=== PATIENT | female | born 1990 | race Caucasian/White ===

== ENCOUNTER 2020-03-03 07:16 | Outpatient (REF) | payer BC, SELFPAY ==
[2020-03-03 11:46] LABS: Estimated Average Glucose 105 mg/dL; Hemoglobin A1c % 5.3 %
[2020-03-03 11:55] LABS: Alanine Aminotransferase 67 U/L (0-31); Albumin Level 4.3 g/dL (3.5-5.0); Alkaline Phosphatase 79 U/L (39-117); Anion Gap 14 (12-20); Aspartate Amino Transferase 29 U/L (5-31); Bilirubin Total 0.4 mg/dL (0.0-1.0); Blood Urea Nitrogen 7 mg/dL (9-16); Calcium 8.6 mg/dL (8.4-10.2); Carbon Dioxide 26 mmol/L (22-29); Chloride 102 mmol/L (96-108); Cholesterol 129 mg/dL; Estimated Glomerular Filt Rate > 60; Glucose Fasting 97 mg/dL (60-99); HDL Cholesterol 50 mg/dL; LDL Cholesterol Calculated 52 mg/dl; Potassium 4.3 mmol/l (3.3-5.1); Sodium 138 mmol/L (135-145); Total Protein 7.2 g/dL (6.5-8.0); Triglycerides 137 mg/dL
== END 2020-03-03 07:17 | disposition home or self-care (01) ==
LOC: HO.HMGCLDS 07:16
PROVIDERS: PCP Internal Medicine; Visit Provider Internal Medicine
DX: D68.2 Hereditary deficiency of other clotting factors (principal); D68.51 Activated protein C resistance; F41.9 Anxiety disorder, unspecified; R73.9 Hyperglycemia, unspecified
CPT/HCPCS: 80053; 80061; 83036

== ENCOUNTER 2020-05-26 06:37 | Outpatient (REF) | payer BC, SELFPAY ==
[2020-05-26 11:32] LABS: Estimated Average Glucose 108 mg/dL; Hemoglobin A1c % 5.4 %
== END 2020-05-26 06:38 | disposition home or self-care (01) ==
LOC: HO.HMGCLDS 06:37
PROVIDERS: PCP Internal Medicine; Visit Provider Internal Medicine
DX: R73.9 Hyperglycemia, unspecified (principal); D68.52 Prothrombin gene mutation; F41.9 Anxiety disorder, unspecified
CPT/HCPCS: 36415; 83036

== ENCOUNTER 2021-01-26 07:26 | Outpatient (REF) | payer BC, SELFPAY ==
[2021-01-26 11:34] LABS: MANUAL DIFF FLAG NO
[2021-01-26 11:40] LABS: Basophils Percent Auto 0.5 % (0-2); Eosinophils Absolute Auto 0.3 X10*3/uL (0.0-0.4); Eosinophils Percent Auto 4.2 % (0-4); Hematocrit 36.9 % (37-47); Hemoglobin 11.7 g/dl (12.0-16.0); Imm Gran Abs Auto 0.04 X10*3/uL (0.00-0.03); Imm Gran Pct Auto 0.5 % (0.0-0.4); Lymphocytes Absolute Auto 1.7 X10*3/uL (1.2-4.9); Mean Corpuscular HGB Conc 31.7 g/dl (31.0-35.0); Mean Corpuscular Hemoglobin 23.8 pg (27.0-33.0); Mean Corpuscular Volume 75.2 fL (80-98); Mean Platelet Volume 11.4 fL (9.4-12.3); Monocytes Absolute Auto 0.5 X10*3/uL (0.1-1.2); Monocytes Percent Auto 6.4 % (2-11); Neutrophils Absolute Auto 5.2 X10*3/uL (2.0-8.3); Neutrophils Percent Auto 66.4 % (45-73); Platelet Count 310 X10*3/uL (160-400); Red Blood Count 4.91 X10*6/uL (4.20-5.50); Red Cell Distribution Width 14.6 % (11.0-16.0); White Blood Count 7.9 X10*3/uL (4.8-10.8)
[2021-01-26 12:03] LABS: Estimated Average Glucose 111 mg/dL; Hemoglobin A1c % 5.5 %
[2021-01-26 12:15] LABS: TSH reflex Free T4 3.39 uIU/mL (0.32-4.0)
[2021-01-26 12:25] LABS: Alanine Aminotransferase 14 U/L (0-31); Albumin Level 4.1 g/dL (3.5-5.0); Alkaline Phosphatase 86 U/L (39-117); Anion Gap 12 (12-20); Aspartate Amino Transferase 13 U/L (5-31); Bilirubin Total 0.3 mg/dL (0.0-1.0); Blood Urea Nitrogen 9 mg/dL (9-16); Calcium 8.6 mg/dL (8.4-10.2); Carbon Dioxide 24 mmol/L (22-29); Chloride 106 mmol/L (96-108); Cholesterol 178 mg/dL; Estimated Glomerular Filt Rate > 60; Glucose Fasting 104 mg/dL (60-99); HDL Cholesterol 44 mg/dL; LDL Cholesterol Calculated 95 mg/dl; Potassium 4.2 mmol/L (3.3-5.1); Sodium 138 mmol/L (135-145); Total Protein 7.2 g/dL (6.5-8.0); Triglycerides 197 mg/dL
== END 2021-01-26 07:27 | disposition home or self-care (01) ==
LOC: HO.HMGCLDS 07:26
PROVIDERS: PCP Internal Medicine; Visit Provider Internal Medicine
DX: I10 Essential (primary) hypertension (principal); R73.9 Hyperglycemia, unspecified
CPT/HCPCS: 36415; 80053; 80061; 83036; 84443; 85025

== ENCOUNTER 2021-04-30 08:59 | Outpatient (REF) | payer BC, SELFPAY ==
[2021-04-30 11:42] LABS: Binax Internal Control QC Valid; Binax Lot number: 9864; Binax Now Covid-19 Ag Negative (Negative)
== END 2021-04-30 09:00 | disposition home or self-care (01) ==
LOC: HO.LAB 08:59
PROVIDERS: Visit Provider Internal Medicine
DX: Z20.822 Contact with and (suspected) exposure to COVID-19 (principal)
CPT/HCPCS: 36415; C9803

== ENCOUNTER 2022-09-27 09:23 | Outpatient (REF) | payer BC, SELFPAY ==
[2022-09-27 11:10] LABS: MANUAL DIFF FLAG NO
[2022-09-27 11:29] LABS: Bacteria Urine 4+ (None Seen); Hyaline Casts Urine 0-2 /LPF (0-2); WBC Urine 21-50 /HPF (0-5)
[2022-09-27 11:35] LABS: Appearance Urine Cloudy; Color Urine Orange; Glucose Urine UA Negative (Negative); Leukocyte Esterase Urine Small (1+) (Negative); Nitrite Urine Negative (Negative); PH 5.5 (5.0-9.0); UMIC TRIGGER UA YES; Urine Blood Large (3+) (Negative); Urine Ketones Negative (Negative); Urine Protein 100 (2+) mg/dL (Neg-Trace)
[2022-09-27 11:43] LABS: Basophils Percent Auto 0.5 % (0-2); Eosinophils Absolute Auto 0.3 X10*3/uL (0.0-0.4); Eosinophils Percent Auto 4.7 % (0-4); Hematocrit 37.6 % (37.0-47.0); Hemoglobin 11.3 g/dl (12.0-16.0); Imm Gran Abs Auto 0.04 X10*3/uL (0.00-0.03); Imm Gran Pct Auto 0.6 % (0.0-0.4); Lymphocytes Absolute Auto 1.4 X10*3/uL (1.2-4.9); Lymphocytes Percent Auto 21.3 % (20-40); Mean Corpuscular HGB Conc 30.1 g/dl (31.0-35.0); Mean Corpuscular Hemoglobin 21.8 pg (27.0-33.0); Mean Corpuscular Volume 72.6 fL (80.0-98.0); Mean Platelet Volume 11.1 fL (9.4-12.3); Monocytes Absolute Auto 0.4 X10*3/uL (0.1-1.2); Monocytes Percent Auto 5.4 % (2-11); Neutrophils Absolute Auto 4.4 x10*3/uL (2.0-8.3); Neutrophils Percent Auto 67.5 % (45-73); Platelet Count 333 X10*3/uL (160-400); Red Blood Count 5.18 X10*6/uL (4.20-5.50); Red Cell Distribution Width 15.6 % (11.0-16.0); White Blood Count 6.4 X10*3/uL (4.8-10.8)
[2022-09-27 11:51] LABS: Alanine Aminotransferase 21 U/L (0-31); Albumin Level 4.2 g/dL (3.5-5.0); Alkaline Phosphatase 87 U/L (39-117); Anion Gap 12 (12-20); Aspartate Amino Transferase 17 U/L (5-31); Bilirubin Total 0.3 mg/dL (0.0-1.0); Blood Urea Nitrogen 11 mg/dL (9-16); Calcium 9.3 mg/dL (8.4-10.2); Carbon Dioxide 26 mmol/L (22-29); Chloride 106 mmol/L (96-108); Cholesterol 182 mg/dL; Estimated Glomerular Filt Rate > 60; Glucose Random 106 mg/dL (60-115); HDL Cholesterol 40 mg/dL; LDL Cholesterol Calculated 100 mg/dl; Potassium 4.6 mmol/L (3.3-5.1); Sodium 139 mmol/L (135-145); Total Protein 7.6 g/dL (6.5-8.0); Triglycerides 212 mg/dL
[2022-09-27 12:03] LABS: Estimated Average Glucose 120 mg/dL; Hemoglobin A1c % 5.8 %
[2022-09-27 12:09] LABS: TSH reflex Free T4 2.36 uIU/mL (0.32-4.0)
[2022-10-12 11:13] LABS: Rabies Neut. Ab Titration 3.1 IU/mL
== END 2022-09-27 09:24 | disposition home or self-care (01) ==
LOC: HO.HMGCLDS 09:23
PROVIDERS: PCP Internal Medicine; Visit Provider Internal Medicine
DX: Z00.00 Encounter for general adult medical examination without abnormal findings (principal); R73.9 Hyperglycemia, unspecified
CPT/HCPCS: 36415; 80053; 80061; 81001; 83036; 84443; 85025; 86382

== ENCOUNTER 2022-12-25 08:10 | Outpatient (AMB) | payer BC, SELFPAY ==
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
[2022-12-25 08:53] VITALS: BP 126/72; PULSE 52; TEMP 36.6; O2SAT 99; BMI 37.6
== END 2022-12-25 09:20 | disposition home or self-care (01) ==
PROVIDERS: PCP Internal Medicine; Visit Provider Physician Assistant
DX: M62.838 Other muscle spasm (principal)
CPT/HCPCS: 99213

== ENCOUNTER 2023-06-15 15:20 | Outpatient (AMB) | payer OTHER, BC, SELFPAY ==
--- NOTE | 2023-06-15 15:24 | MHC.OFFWIV ---
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 She was able to control the bleeding. She is up to date with Rabies and Tdap Shots. Denies any systemic symptoms. [facility] Medical History Annual physical exam Anxiety delivery indicated due to breech presentation Gallstone Gestational diabetes HTN (hypertension) Hypercoagulability due to prothrombin II mutation Hyperglycemia, unspecified Surgical History History of tonsillectomy Nephrolithiasis Family History Father Gout Arthritis Substance use disorder Mental health disorder Mother History of heart attack TIA (transient ischemic attack) Stroke Cervical cancer Substance use disorder Mental health disorder Maternal Grandfather Medical history non-contributory Maternal Grandmother HTN (hypertension) Paternal Grandmother Stroke Cancer Paternal Grandfather No problems noted. Brother No problems noted. 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 Housing: House Alcohol intake: never Patient Tobacco Use Status: Never used Tobacco e-Cigarette/Vaping Use: Never Used service: No Current occupational status: employed Cognitive needs: No Hearing needs: No Vision needs: Yes Physical Exam Vital Signs: Last Vital Signs Temp 97.5 F 06/15/23 15:36 Pulse 100 06/15/23 15:36 BP 170/100 H 06/15/23 15:36 Pulse Ox 99 06/15/23 15:36 Oxygen Delivery Method Room Air 06/15/23 15:36 BMI result Body Mass Index 38.5 Const General: comfortable and no acute distress Skin Trauma: laceration (left upper forearm ) Extrem Right upper extremity: full ROM, no joint enlargement and elbow/forearm Details: normal to inspection and normal ROM; no swelling; no cyanosis and no edema Left upper extremity: full ROM and elbow/forearm (small area of Tooth puncture, redness and tender) Details: normal ROM Assessment & Plan Assessment & Plan (1) Dog bite of arm: Code(s): S41.159A - Open bite of unspecified upper arm, initial encounter; W54.0XXA - Bitten by dog, initial encounter Qualifiers: Encounter type: initial encounter Laterality: left Qualified Code(s): S41.152A - Open bite of left upper arm, initial encounter; W54.0XXA - Bitten by dog, initial encounter Plan: - She is up to date with Tdap and Rabies immunization - Keep the area clean - Take Abx as prescribed. Medications: New amoxicillin-pot clavulanate 875-125 mg 1 tab PO BID 5 days 10 tabs 0RF PROPHYLAXIS S41.152A - Open bite of left upper arm, initial encounter, W54.0XXA - Bitten by dog, initial encounter Coding Level of Care Code Est Pt Level 3 (76661) Diagnoses Dog bite of left upper extremity, initial encounter S41.152A; W54.0XXA Encounter type: initial encounter Laterality: left Time Spent (min) 15
[2023-06-15 15:36] VITALS: BP 170/100; PULSE 100; TEMP 36.4; O2SAT 99; BMI 38.5
== END 2023-06-15 15:47 | disposition home or self-care (01) ==
PROVIDERS: PCP Internal Medicine; Visit Provider Nurse Practitioner Family
DX: S41.152A Open bite of left upper arm, initial encounter (principal); W54.0XXA Bitten by dog, initial encounter
CPT/HCPCS: 99213

== ENCOUNTER 2023-12-18 10:05 | Outpatient (AMB) | payer BC, SELFPAY ==
[2023-12-18 10:18] VITALS: BP 118/80; PULSE 95; O2SAT 99; BMI 37.9
--- NOTE | 2023-12-18 10:18 | A.OFFPC_ITS ---
Vital Signs 12/18/23 10:18 Height 5 ft 4 in Weight 221 lb BMI 37.9 BP 118/80 Blood Pressure Location Lt brachial Position Sitting Pulse 95 Pulse Source Pulse Oximeter Pulse Oximetry (%) 99 Oxygen Delivery Method Room Air Intake Visit Reasons: PE Intake Note: Pt is here today for PE. Allergies No Known Allergies Allergy (Verified 12/18/23 10:24) Tobacco use date assessed: 12/18/23 Dental Screening Dental Screen Date: 12/18/23 Did you have a dental visit in the last 12 months?: Yes Did you have a dental problem in the last 6 months where you did not have access to dental care?: No Was dental information given to patient?: Patient has dentist HPI PE HPI Details Pt presents for PE. [facility] Medical History Annual physical exam Hypercoagulability due to prothrombin II mutation Hyperglycemia, unspecified Anxiety delivery indicated due to breech presentation Gestational diabetes Gallstone HTN (hypertension) Surgical History Nephrolithiasis History of tonsillectomy Family History Father Gout Arthritis Substance use disorder Mental health disorder Mother History of heart attack TIA (transient ischemic attack) Stroke Cervical cancer Substance use disorder Mental health disorder Maternal Grandfather Medical history non-contributory Maternal Grandmother HTN (hypertension) Paternal Grandmother Stroke Cancer Paternal Grandfather No problems noted. Brother No problems noted. 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 1. Little interest or pleasure in doing things: not at all 2. Feeling down, depressed, or hopeless: not at all 3. Trouble falling or staying asleep, or sleeping too much: not at all 4. Feeling tired or having little energy: not at all 5. Poor appetite or overeating: not at all 6. Feeling bad about yourself - or that you are a failure or have let yourself or your family down: not at all 7. Trouble concentrating on things, such as reading the newspaper or watching television: not at all 8. Moving or speaking so slowly that other people could have noticed. Or the opposite - being so fidgety or restless that you have been moving around a lot more than usual: not at all 9. Thoughts that you would be better off or of hurting yourself in some way: not at all Total score: 0 Depression Screening Interpretation: Negative Depression Screening Done: Yes 56123 - PHQ-9 Billing: Yes Source: Developed by Drs. Lucien Griffiths, Samantha Jimenez, Jasvir Nevarez and colleagues, with an educational matty from [employer]. Thrive Questionnaire Date Thrive assessed: 12/18/23 I am a: Patient What is your living situation today?: I have a steady place to live Within the past 12 months, did the food you bought not last and you didn't have the money to get more?: Never true Within the past 12 months, did you worry whether your food would run out before you got money to buy more?: Never true Do you have trouble paying for medicines?: No Do you have trouble getting transportation to medical appointments?: No Do you have trouble paying your heating and electricity bill?: No Do you have trouble taking care of your child, family member or friend?: No Do you have trouble with day-to-day activities such as bathing, preparing meals, shopping, managing finances, etc.?: No Are you currently unemployed and looking for a job?: No Are you interested in more education?: No Please select the resources that you would like help with: None Currently or been in a relationship where the following occur: No concerns reported THRIVE Score: 0 AUDIT C Alcohol Use Questionnaire (AUDIT-C) 1. How often do you have a drink containing alcohol?: Monthly or less 2. How many drinks containing alcohol do you have on a typical day when you are drinking?: 1 or 2 3. How often do you have six or more drinks on one occasion?: Never Total Score: 1 PETE-7 AMB Questionnaire PETE-7 Date PETE - 7 assessed: 12/18/23 Feeling nervous, anxious, or on edge: 3 = Nearly every day Not being able to stop or control worryin = More than half the days Worrying too much about different things: 2 = More than half the days Trouble relaxin = Nearly every day Being so restless that it is hard to sit still: 3 = Nearly every day Becoming easily annoyed or irritable: 1 = Several days Feeling afraid as if something awful might happen: 1 = Several days Total PETE-7 score (0-4 normal; 5-9 mild; 10-14 moderate; 15-21 severe): 15 Source: Developed by Drs. Lucien Griffiths, Samantha Jimenez, Jasvir Nevarez and colleagues, with an educational matty from [employer]. PETE-7 Assessment Billing PETE-7 Assessment Tool: PETE-7 Assessment 95208 Review of Systems Const All systems reviewed & are unremarkable except as noted in HPI and below Reports no additional complaints Eyes Reports no additional complaints ENT Reports no additional complaints Card Reports no additional complaints Resp Reports no additional complaints GI Reports no additional complaints Reports no additional complaints Physical exam (Primary Care) Vital Signs: Last Vital Signs Pulse 95 12/18/23 10:18 BP 118/80 12/18/23 10:18 Pulse Ox 99 12/18/23 10:18 Oxygen Delivery Method Room Air 12/18/23 10:18 BMI result Body Mass Index 37.9 Tobacco/Smoking Status: Tobacco use Status Tobacco use date assessed 12/18/23 12/18/23 10:25 Patient Tobacco Use Status Never used Tobacco 12/18/23 10:25 e-Cigarette/Vaping Use Never Used 12/18/23 10:21 PHQ-9: PHQ-9 Score PHQ-9: Total score 0 12/18/23 10:25 Depression Screening Interpretation: Negative Thrive Assessment: Date of Thrive Assessment Date Thrive assessed 12/18/23 12/18/23 10:25 Currently or been in a relationship where the following occur: No concerns reported Const General: no acute distress HENMT Head: Yes normal to inspection Ears: hearing grossly normal bilaterally General nose exam: Normal external nose present Mouth: Normal oral and palatal mucosa present Throat: Yes posterior oropharynx normal Eyes General: appearance normal, both eyes and all related structures Neck Neck: Yes no lymphadenopathy and Yes supple Resp Effort & Inspection: normal respiratory effort Auscultation: clear to auscultation bilaterally Cardio Rhythm: regular rhythm Heart sounds: S1 normal heart sound present and S2 normal heart sound present GI Inspection: Yes normal to inspection Palpation (GI): Soft to palpation Percussion: Yes normal to percussion Auscultation: normal bowel sounds Assessment and Plan Assessment & Plan (1) Anxiety: Comment: started on Zoloft 01/2020 by golf tournament consultant, will see psychotherapist Code(s): F41.9 - Anxiety disorder, unspecified Plan: cont Zoloft (2) Hyperglycemia, unspecified: Code(s): R73.9 - Hyperglycemia, unspecified Plan: ADA diet, regular exercise, weight loss discussed (3) Hypercoagulability due to prothrombin II mutation: Code(s): D68.52 - Prothrombin gene mutation (4) Annual physical exam: Code(s): Z00.00 - Encounter for general adult medical examination without abnormal findings Plan: well balanced diet, regular exercise, weight loss discussed, return for fasting labs. Pt is up to date with golf tournament consultant. pt will recheck BP with [place] in 3 months. Orders: Orders UA w Microscopic Today D68.52 - Prothrombin gene mutation, F41.9 - Anxiety disorder, unspecified, R73.9 - Hyperglycemia, unspecified, Z00.00 - Encounter for general adult medical examination without abnormal findings Comprehensive [place]. Panel Fast 1 Year F41.9 - Anxiety disorder, unspecified, R73.9 - Hyperglycemia, unspecified, Z00.00 - Encounter for general adult medical examination without abnormal findings Complete Blood Count Auto Diff 1 Year F41.9 - Anxiety disorder, unspecified, R73.9 - Hyperglycemia, unspecified, Z00.00 - Encounter for general adult medical examination without abnormal findings Hemoglobin A1c 1 Year F41.9 - Anxiety disorder, unspecified, R73.9 - Hyperglycemia, unspecified, Z00.00 - Encounter for general adult medical examination without abnormal findings Comprehensive [place]. Panel Fast Today D68.52 - Prothrombin gene mutation, F41.9 - Anxiety disorder, unspecified, R73.9 - Hyperglycemia, unspecified, Z00.00 - Encounter for general adult medical examination without abnormal findings Complete Blood Count Auto Diff Today D68.52 - Prothrombin gene mutation, F41.9 - Anxiety disorder, unspecified, R73.9 - Hyperglycemia, unspecified, Z00.00 - Encounter for general adult medical examination without abnormal findings Lipid Panel Today D68.52 - Prothrombin gene mutation, F41.9 - Anxiety disorder, unspecified, R73.9 - Hyperglycemia, unspecified, Z00.00 - Encounter for general adult medical examination without abnormal findings IRON PROFILE Today D68.52 - Prothrombin gene mutation, F41.9 - Anxiety disorder, unspecified, R73.9 - Hyperglycemia, unspecified, Z00.00 - Encounter for general adult medical examination without abnormal findings TSH reflex Free T4 Today D68.52 - Prothrombin gene mutation, F41.9 - Anxiety disorder, unspecified, R73.9 - Hyperglycemia, unspecified, Z00.00 - Encounter for general adult medical examination without abnormal findings Vitamin B12 and Folate Today D68. - Prothrombin gene mutation, F41.9 - Anxiety disorder, unspecified, R73.9 - Hyperglycemia, unspecified, Z00.00 - Encounter for general adult medical examination without abnormal findings Hemoglobin A1c Today R73.9 - Hyperglycemia, unspecified Lipid Panel 1 Year F41.9 - Anxiety disorder, unspecified, R73.9 - Hyperglycemia, unspecified, Z00.00 - Encounter for general adult medical examination without abnormal findings UA w Microscopic 1 Year F41.9 - Anxiety disorder, unspecified, R73.9 - Hyperglycemia, unspecified, Z00.00 - Encounter for general adult medical examination without abnormal findings Coding Level of Care Code Est Pt Prev Care 18-39y(17976) Diagnoses Anxiety F41.9 Hyperglycemia, unspecified R73.9 Hypercoagulability due to prothrombin II mutation D68. Annual physical exam Z00.00 Additional Codes PETE-7 Assessment Billing - PETE-7 Assessment Tool: PETE-7 Assessment 86720 ([id number])
== END 2023-12-18 11:08 | disposition home or self-care (01) ==
PROVIDERS: PCP Internal Medicine; Visit Provider Internal Medicine
DX: F41.9 Anxiety disorder, unspecified (principal); R73.9 Hyperglycemia, unspecified; D68.52 Prothrombin gene mutation; Z00.00 Encounter for general adult medical examination without abnormal findings
CPT/HCPCS: 96127; 99395

== ENCOUNTER 2023-12-26 07:22 | Outpatient (REF) | payer BC, SELFPAY ==
[2023-12-26 10:09] LABS: MANUAL DIFF FLAG NO
[2023-12-26 10:17] LABS: Basophils Percent Auto 0.4 % (0-2); Eosinophils Absolute Auto 0.4 X10*3/uL (0.0-0.4); Eosinophils Percent Auto 4.6 % (0-4); Hemoglobin 9.6 g/dl (12.0-16.0); Imm Gran Abs Auto 0.07 X10*3/uL (0.00-0.03); Imm Gran Pct Auto 0.9 % (0.0-0.4); Lymphocytes Absolute Auto 1.8 X10*3/uL (1.2-4.9); Lymphocytes Percent Auto 23.5 % (20-40); Mean Corpuscular Hemoglobin 20.5 pg (27.0-33.0); Mean Corpuscular Volume 68.4 fL (80.0-98.0); Mean Platelet Volume 11.5 fL (9.4-12.3); Monocytes Absolute Auto 0.4 X10*3/uL (0.1-1.2); Monocytes Percent Auto 5.5 % (2-11); Neutrophils Percent Auto 65.1 % (45-73); Platelet Count 278 X10*3/uL (160-400); Red Blood Count 4.68 X10*6/uL (4.20-5.50); Red Cell Distribution Width 17.1 % (11.0-16.0); White Blood Count 7.7 X10*3/uL (4.8-10.8)
[2023-12-26 10:28] LABS: Estimated Average Glucose 114 mg/dL; Hemoglobin A1c % 5.6 % (<6.0)
[2023-12-26 10:28] LABS: Appearance Urine Cloudy; Color Urine Yellow; Glucose Urine UA Negative (Negative); Leukocyte Esterase Urine Negative (Negative); Nitrite Urine Negative (Negative); Specific Gravity - Urine >= 1.030 (1.005-1.025); Urine Blood Negative (Negative); Urine Ketones Negative (Negative); Urine Protein Negative (Neg-Trace)
[2023-12-26 10:47] LABS: Bacteria Urine Trace (None Seen); Hyaline Casts Urine 0-2 /LPF (0-2); RBC Urine 0-2 /HPF (0-2); WBC Urine 0-5 /HPF (0-5)
[2023-12-26 10:49] LABS: Alanine Aminotransferase 13 U/L (0-31); Albumin Level 3.9 g/dL (3.5-5.0); Alkaline Phosphatase 70 U/L (39-117); Anion Gap 10 (12-20); Aspartate Amino Transferase 13 U/L (5-31); Bilirubin Total 0.3 mg/dL (0.0-1.0); Blood Urea Nitrogen 9 mg/dL (9-16); Calcium 8.6 mg/dL (8.4-10.2); Carbon Dioxide 25 mmol/L (22-29); Chloride 107 mmol/L (96-108); Cholesterol 157 mg/dL (<200); Estimated Glomerular Filt Rate > 60; Glucose Fasting 103 mg/dL (60-99); HDL Cholesterol 41 mg/dL (>40); Iron 24 mcg/dL (30-160); LDL Cholesterol Calculated 86 mg/dL (<100); Percent Iron Saturation 7 % (15-50); Potassium 4.4 mmol/L (3.3-5.1); Sodium 138 mmol/L (135-145); Total Iron Binding Capacity 350 mcg/dL (228-428); Triglycerides 154 mg/dL (<150); Unsaturated Iron Binding 326 ug/dL
[2023-12-26 10:52] LABS: TSH reflex Free T4 3.67 uIU/mL (0.32-4.0)
[2023-12-26 11:02] LABS: Vitamin B12 321 pg/mL (200-900)
== END 2023-12-26 07:23 | disposition home or self-care (01) ==
LOC: HO.HMGCLDS 07:22
PROVIDERS: PCP Internal Medicine; Visit Provider Internal Medicine
DX: Z00.00 Encounter for general adult medical examination without abnormal findings (principal); D68.52 Prothrombin gene mutation; R73.9 Hyperglycemia, unspecified; F41.9 Anxiety disorder, unspecified
CPT/HCPCS: 36415; 80053; 80061; 81001; 82607; 82746; 83036; 83540; 84443; 85025

== ENCOUNTER 2024-01-30 07:24 | Outpatient (REF) | payer BC, SELFPAY ==
[2024-01-30 09:59] LABS: MANUAL DIFF FLAG NO
[2024-01-30 10:12] LABS: Basophils Percent Auto 0.4 % (0-2); Eosinophils Absolute Auto 0.3 X10*3/uL (0.0-0.4); Eosinophils Percent Auto 3.9 % (0-4); Hematocrit 37.4 % (37.0-47.0); Hemoglobin 11.5 g/dl (12.0-16.0); Imm Gran Abs Auto 0.05 X10*3/uL (0.00-0.03); Imm Gran Pct Auto 0.7 % (0.0-0.4); Lymphocytes Absolute Auto 1.8 X10*3/uL (1.2-4.9); Lymphocytes Percent Auto 24.3 % (20-40); Mean Corpuscular HGB Conc 30.7 g/dl (31.0-35.0); Mean Corpuscular Hemoglobin 22.2 pg (27.0-33.0); Mean Corpuscular Volume 72.1 fL (80.0-98.0); Mean Platelet Volume 11.2 fL (9.4-12.3); Monocytes Absolute Auto 0.4 X10*3/uL (0.1-1.2); Monocytes Percent Auto 5.7 % (2-11); Neutrophils Absolute Auto 4.8 x10*3/uL (2.0-8.3); Platelet Count 271 X10*3/uL (160-400); Red Blood Count 5.19 X10*6/uL (4.20-5.50); Red Cell Distribution Width 20.9 % (11.0-16.0); White Blood Count 7.4 X10*3/uL (4.8-10.8)
[2024-01-30 10:43] LABS: Iron 30 mcg/dL (30-160); Percent Iron Saturation 9 % (15-50); Total Iron Binding Capacity 333 mcg/dL (228-428); Unsaturated Iron Binding 303 ug/dL
== END 2024-01-30 07:25 | disposition home or self-care (01) ==
LOC: HO.HMGCLDS 07:24
PROVIDERS: PCP Internal Medicine; Visit Provider Internal Medicine
DX: D64.9 Anemia, unspecified (principal)
CPT/HCPCS: 36415; 83540; 85025

== ENCOUNTER 2024-05-06 07:57 | Outpatient (AMB) | payer BC, SELFPAY ==
--- NOTE | 2024-05-06 08:09 | AM.OFFWIN_ITS ---
Intake Vital Signs 05/06/24 08:10 Height 5 ft 4 in Weight 149 lb BMI 25.6 BP 112/70 Blood Pressure Location Rt brachial Position Sitting Pulse 76 Pulse Source Pulse Oximeter Temp 98.1 F Temp Source Oral Pulse Oximetry (%) 98 Oxygen Delivery Method Room Air Intake Visit Reasons: EP-b/l ear infection Intake Note: Pt is here for b/l ear infection Patient Tobacco Use Status: Never used Tobacco Allergies No Known Allergies Allergy (Verified 05/06/24 08:19) Do you need a note to return to daycare/school/sports/work: No HPI HPI Comments History of Present Illness Details She presents with ear pain Son is sick at home with URI She said + pressure in bilateral ears; has not had an ear infection in 20 years L side + painful, 2/10 [address] runny nose or st. No fever or chills or cough + congestion PFSH Medical History Annual physical exam Hypercoagulability due to prothrombin II mutation Hyperglycemia, unspecified Anxiety delivery indicated due to breech presentation Gestational diabetes Gallstone HTN (hypertension) Surgical History Nephrolithiasis History of tonsillectomy Family History Father Gout Arthritis Substance use disorder Mental health disorder Mother History of heart attack TIA (transient ischemic attack) Stroke Cervical cancer Substance use disorder Mental health disorder Maternal Grandfather Medical history non-contributory Maternal Grandmother HTN (hypertension) Paternal Grandmother Stroke Cancer Paternal Grandfather No problems noted. Brother No problems noted. 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 Housing: House Alcohol intake: never Patient Tobacco Use Status: Never used Tobacco e-Cigarette/Vaping Use: Never Used service: No Current occupational status: employed Cognitive needs: No Hearing needs: No Vision needs: Yes Review of Systems Const Denies chills, Denies fever(s) and Denies headache(s) ENT Denies dizziness, Denies ear discharge, Reports otalgia, Denies headache(s), Reports nasal congestion, Denies nasal discharge, Denies sinus pressure, Denies sore throat and Denies throat swelling Card Denies chest pain Resp Denies cough Musc Denies myalgias Neuro Denies dizziness and Denies headache(s) Aller/Immun Denies throat swelling Physical Exam Vital Signs: Last Vital Signs Temp 98.1 F 05/06/24 08:10 Pulse 76 05/06/24 08:10 BP 112/70 05/06/24 08:10 Pulse Ox 98 05/06/24 08:10 Oxygen Delivery Method Room Air 05/06/24 08:10 BMI result Body Mass Index 25.6 General: Non-toxic, NAD. Speaking full sentences. Skin: Warm dry throughout Eye: EOMI HENT: Airway patent. Uvula midline. No pharyngeal erythema or edema. No DIAMOND SANDER. Bilateral canals clear. R TM has fluid but is non-erythematous, non-bulging. L TM + fludi with some erythema. No bulge, perforation or bullae. No hemotympanum noted. Respiratory: CTA bilaterally. No wheezes, rales or rhonchi Cardiac: RRR. No murmur MSK: Full ROM extremities. Neurology: Alert. No aphasia or facial droop. Gait without abnormality Psych: Good mood and affect Assessment & Plan Assessment & Plan (1) Otitis media: Code(s): H66.90 - Otitis media, unspecified, unspecified ear Qualifiers: Otitis media type: unspecified Chronicity: acute Qualified Code(s): H66.90 - Otitis media, unspecified, unspecified ear Plan: Patient seen and evaluated. amoxicillin for L ear Tylenol/Motrin or claritin Patient gave verbal understanding and had no additional questions or concerns at time of discharge All questions answered Medications: New amoxicillin 875 mg PO BID 14 tabs 0RF Coding Level of Care Code Est Pt Level 3 (42357) Diagnoses Acute otitis media, unspecified otitis media type H66.90 Otitis media type: unspecified Chronicity: acute
[2024-05-06 08:10] VITALS: BP 112/70; PULSE 76; TEMP 36.7; O2SAT 98; BMI 25.6
== END 2024-05-06 08:35 | disposition home or self-care (01) ==
PROVIDERS: PCP Internal Medicine; Visit Provider Physician Assistant
DX: H66.90 Otitis media, unspecified, unspecified ear (principal)

== ENCOUNTER → 2024-05-06 07:57 | Outpatient (BNVA) | payer BC, SELFPAY | PROVIDERS: PCP Internal Medicine; Visit Provider Physician Assistant ==

== ENCOUNTER 2025-04-21 13:42 | Outpatient (AMB) | payer BC, SELFPAY ==
[2025-04-21 13:48] VITALS: BP 136/90; PULSE 104; RESP 16; TEMP 36.8; O2SAT 98; BMI 32.3
--- NOTE | 2025-04-21 13:48 | A.OFFPC_ITS ---
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 She has increased stress at work, feeling overworked and overwhelmed, difficulty setting boundaries. Patient reports difficulty sleeping at night. She denies suicide ideation she is established with a counselor. Pt underwent hysterectomy in July for uterine fibroids. 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 Brother No problems noted. 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 1. Little interest or pleasure in doing things: more than half the days 2. Feeling down, depressed, or hopeless: more than half the days 3. Trouble falling or staying asleep, or sleeping too much: more than half the days 4. Feeling tired or having little energy: more than half the days 5. Poor appetite or overeating: more than half the days 6. Feeling bad about yourself - or that you are a failure or have let yourself or your family down: more than half the days 7. Trouble concentrating on things, such as reading the newspaper or watching television: more than half the days 8. Moving or speaking so slowly that other people could have noticed. Or the opposite - being so fidgety or restless that you have been moving around a lot more than usual: more than half the days 9. Thoughts that you would be better off or of hurting yourself in some way: not at all Total score: 16 Depression Screening Interpretation: Positive (Continue sertraline and counseling follow-up in 1 month) Depression Screening Follow-up: Existing condition and In treatment Depression Screening Done: Yes Source: Developed by Drs. Lucien Griffiths, Samantha Jimenez, Jasvir Nevarez and colleagues, with an educational matty from [employer]. Thrive Questionnaire Date Thrive assessed: 12/18/23 I am a: Patient What is your living situation today?: I have a steady place to live Within the past 12 months, did the food you bought not last and you didn't have the money to get more?: Never true Within the past 12 months, did you worry whether your food would run out before you got money to buy more?: Never true Do you have trouble paying for medicines?: No Do you have trouble getting transportation to medical appointments?: No Do you have trouble paying your heating and electricity bill?: No Do you have trouble taking care of your child, family member or friend?: No Do you have trouble with day-to-day activities such as bathing, preparing meals, shopping, managing finances, etc.?: No Are you currently unemployed and looking for a job?: No Are you interested in more education?: No Please select the resources that you would like help with: None Currently or been in a relationship where the following occur: No concerns reported THRIVE Score: 0 AUDIT C Alcohol Use Questionnaire (AUDIT-C) 1. How often do you have a drink containing alcohol?: Monthly or less 2. How many drinks containing alcohol do you have on a typical day when you are drinking?: 1 or 2 3. How often do you have six or more drinks on one occasion?: Never Total Score: 1 PETE-7 AMB Questionnaire PETE-7 Date PETE - 7 assessed: 12/18/23 Feeling nervous, anxious, or on edge: 3 = Nearly every day Not being able to stop or control worryin = Nearly every day Worrying too much about different things: 3 = Nearly every day Trouble relaxin = Nearly every day Being so restless that it is hard to sit still: 3 = Nearly every day Becoming easily annoyed or irritable: 3 = Nearly every day Feeling afraid as if something awful might happen: 3 = Nearly every day Total PETE-7 score (0-4 normal; 5-9 mild; 10-14 moderate; 15-21 severe): 21 Source: Developed by Drs. Lucien Griffiths, Samantha Jimenez, Jasvir Nevarez and colleagues, with an educational matty from [employer]. Review of Systems Const All systems reviewed & are unremarkable except as noted in HPI and below Eyes Reports no additional complaints ENT Reports no additional complaints Card Reports no additional complaints Resp Reports no additional complaints GI Reports no additional complaints Reports no additional complaints Physical exam (Primary Care) Vital Signs: Last Vital Signs Temp 98.2 F 04/21/25 13:48 Pulse 104 H 04/21/25 13:48 Resp 16 04/21/25 13:48 BP 136/90 H 04/21/25 13:48 Pulse Ox 98 04/21/25 13:48 Oxygen Delivery Method Room Air 04/21/25 13:48 BMI result Body Mass Index 32.3 Tobacco/Smoking Status: Tobacco use Status Tobacco use date assessed 04/21/25 04/21/25 13:52 Patient Tobacco Use Status Never used Tobacco 04/21/25 13:52 e-Cigarette/Vaping Use Never Used 04/21/25 13:52 PHQ-9: PHQ-9 Score PHQ-9: Total score 16 04/21/25 13:52 Depression Screening Interpretation: Positive (Continue sertraline and counseling follow-up in 1 month) Depression Screening Follow-up: Existing condition and In treatment Thrive Assessment: Date of Thrive Assessment Date Thrive assessed 12/18/23 04/21/25 13:52 Currently or been in a relationship where the following occur: No concerns reported Const General: no acute distress HENMT Head: Yes normal to inspection Eyes General: appearance normal, both eyes and all related structures Resp Effort & Inspection: normal respiratory effort Auscultation: clear to auscultation bilaterally Cardio Rhythm: regular rhythm Heart sounds: S1 normal heart sound present and S2 normal heart sound present Coding Level of Care Code Est Pt Level 3 (98574) Diagnoses Anxiety F41.9 Assessment & Plan Assessment & Plan (1) Anxiety: Comment: started on Zoloft 01/2020, established with psychotherapist Code(s): F41.9 - Anxiety disorder, unspecified Category: Medical Plan: Patient was advised to continue counseling, stress management mindfulness, regular physical activity discussed with the patient. She will be out of work until May 25. patient will continue sertraline and follow-up in 1 month
== END 2025-04-21 14:39 | disposition home or self-care (01) ==
LOC: HO.HMCC 13:43
PROVIDERS: PCP Internal Medicine; Visit Provider Internal Medicine
DX: F41.9 Anxiety disorder, unspecified (principal)

== ENCOUNTER 2025-04-25 09:15 | Outpatient (AMB) | payer BC, SELFPAY ==
[2025-04-25 11:00] VITALS: BP 128/90; PULSE 103; RESP 16; TEMP 36.6; O2SAT 99; BMI 32.6
--- NOTE | 2025-04-25 11:00 | MHC.OFFWIV ---
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 Her son had similar symptoms prior to this, and is being treated for an ear infection. She complains of sore throat due to postnasal drip. 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 Brother No problems noted. 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), well balanced diet Housing: House Alcohol intake: never Patient Tobacco Use Status: Never used Tobacco e-Cigarette/Vaping Use: Never Used service: No Current occupational status: employed Cognitive needs: No Hearing needs: No Vision needs: Yes Review of Systems Const All systems reviewed & are unremarkable except as noted in HPI and below Physical Exam Vital Signs: Last Vital Signs Temp 97.9 F 04/25/25 11:00 Pulse 103 H 04/25/25 11:00 Resp 16 04/25/25 11:00 BP 128/90 H 04/25/25 11:00 Pulse Ox 99 04/25/25 11:00 Oxygen Delivery Method Room Air 04/25/25 11:00 BMI result Body Mass Index 32.6 Results AMB Rapid Strep AMB Rapid Strep Negative Last Edit by Emma Grewal CMA on 04/25/25 11:08 Results Reviewed Results Reviewed: Laboratory Last Values Strep Scn Rapid Clinic Negative 04/25/25 11:04 Negative strep test rapid Assessment & Plan Assessment & Plan Orders: Orders AMB Rapid Strep Screen Today Z13.9 - Encounter for screening, unspecified SARS-CoV2/FLU/RSV Today J06.9 - Acute upper respiratory infection, unspecified Medications: New ibuprofen 800 mg PO Q8H PRN 30 tabs 0RF pain oseltamivir (Tamiflu) 75 mg PO BID 10 caps 0RF 5 days Coding Level of Care Code Est Pt Level 4 (26926)
== END 2025-04-25 11:31 | disposition home or self-care (01) ==
PROVIDERS: PCP Internal Medicine; Visit Provider Physician Assistant Medical
DX: Z13.9 Encounter for screening, unspecified (principal)